=== PATIENT | female | born 1955 | race Caucasian/White ===

== ENCOUNTER 2017-09-05 13:10 | Inpatient (IN) | END 2017-09-07 18:00 | disposition home or self-care (01) | DRG 144 | DX: J20.8 Acute bronchitis due to other specified organisms (principal); D69.6 Thrombocytopenia, unspecified; E44.0 Moderate protein-calorie malnutrition; I11.0 Hypertensive heart disease with heart failure; I50.32 Chronic diastolic (congestive) heart failure; E86.0 Dehydration; J06.9 Acute upper respiratory infection, unspecified; B96.89 Other specified bacterial agents as the cause of diseases classified elsewhere; I25.10 Atherosclerotic heart disease of native coronary artery without angina pectoris; Z95.1 Presence of aortocoronary bypass graft; Z95.5 Presence of coronary angioplasty implant and graft; M94.0 Chondrocostal junction syndrome [Tietze]; E78.5 Hyperlipidemia, unspecified; F41.8 Other specified anxiety disorders; M19.90 Unspecified osteoarthritis, unspecified site; Z68.25 Body mass index [BMI] 25.0-25.9, adult; D64.9 Anemia, unspecified ==